=== PATIENT | female | born 1985 | race Caucasian/White ===

== ENCOUNTER 2017-01-13 23:59 | Emergency (ER) | payer BC ==
[2017-01-13 22:48] LABS: BASOPHIL# 0.1 X10e3 (0-0.3); BASOPHIL% 0.5 % (0-2.5); EOSINOPHIL# 0.1 X10e3 (0-0.7); EOSINOPHIL% 0.7 % (0.0-7.0); HEMATOCRIT 49.1 % (35.0-45.0); HEMOGLOBIN 15.9 gm/dL (12.0-16.0); LYMPHOCYTE# 2.2 X10e3 (1.0-3.5); LYMPHOCYTE% 15.3 % (17.0-45.0); MEAN CELL VOLUME 91.7 FL (83-96); MEAN CORPUSCULAR HEMOGLOBIN 29.7 PG (28-34); MEAN CORPUSCULAR HGB CONC 32.4 g/dL (30-36); MEAN PLATELET VOLUME 8.5 FL (6.5-11.5); MONOCYTE# 0.8 X10e3 (0-1.0); MONOCYTE% 5.7 % (3.0-12.0); NEUTROPHIL# 11.2 X10e3 (1.5-7.1); NEUTROPHIL% 77.8 % (40-75); PLATELET COUNT 285 X10e3 (140-420); RED BLOOD COUNT 5.35 X10e (3.90-5.30); RED CELL DISTRIBUTION WIDTH 14.1 % (11.0-15.5); WHITE BLOOD COUNT 14.3 X10e3 (4.0-10.5)
[2017-01-13 22:49] LABS: DIFF IND NO
[2017-01-13 23:25] LABS: ALBUMIN SERUM 5.1 g/dL (3.5-5.0); ALKALINE PHOSPHATASE 88 U/L (32-92); ALT (SGPT) 71 U/L (10-40); AMYLASE 46 U/L (0-46); AST (SGOT) 85 U/L (10-42); BILIRUBIN, DIRECT 0.2 mg/dL (0.0-0.2); BILIRUBIN,INDIRECT 1.1 mg/dL (0.0-0.9); BILIRUBIN,TOTAL 1.3 mg/dL (0.2-2.0); BLOOD UREA NITROGEN 17 mg/dL (9-23); CALCIUM SERUM 8.8 mg/dL (8.4-10.2); CARBON DIOXIDE 22 mmol/L (22-31); CHLORIDE 103 mmol/L (100-111); GLOM FILT RATE Estimated ABOVE60 mL/min (>60); GLUCOSE FASTING 89 mg/dL (70-110); LIPASE 39 U/L (22-51); POTASSIUM 3.7 mmol/L (3.5-5.1); PROTEIN TOTAL SERUM 8.1 g/dL (6.0-8.3); SODIUM 132 mmol/L (135-145)
== END 2017-01-14 00:04 | disposition home or self-care (01) ==
LOC: CED 23:59
PROVIDERS: Emergency Medicine
DX: K80.50 Calculus of bile duct without cholangitis or cholecystitis without obstruction (principal); F41.9 Anxiety disorder, unspecified; F32.9 Major depressive disorder, single episode, unspecified; F17.210 Nicotine dependence, cigarettes, uncomplicated
CPT/HCPCS: 36415; 80048; 80076; 82150; 83690; 84703; 85025; 99284

== ENCOUNTER → 2017-02-03 | Outpatient (CLI) | payer BC ==
--- NOTE | ~2017-02-03 | US6 ---
[facility] A Service of [facility] & [facility] [place] RADIOLOGY TEXT RESULTS PATIENT: ALEXANDRIA SOLIS LOCATION: [facility] : [birth year] UNIT #: [id number] AGE: [address]: Elicia Pena MD SEX: F ORDER DR: [id number] [facility] [address] [place], [place] [address] [id number] O MR#: [id number] Acc #: [id number] NAME: ALEXANDRIA SOLIS : 1985 SEX: F STUDY DATE/TIME: 02/03/2017 11:53 UNIT: [facility] ROOM: STUDY DESCRIPTION: US Abdominal Limited Attending Physician: Elicia Pena M.D. Referring Physician: Elicia Pena M.D. Ordering Physician: Elicia Pena M.D. Primary Care Physician: Elicia Pena M.D. MEDICAL IMAGING REPORT This report is preliminary unless electronic signature is present EXAM Right upper quadrant ultrasound, 02/03/2017. HISTORY Right upper quadrant abdominal pain and epigastric pain with nausea for 5 years. FINDINGS The liver is homogeneous in echotexture and demonstrates no cystic or solid mass lesions. The intra and extrahepatic bile ducts are not dilated. The gallbladder contains multiple shadowing gallstones but there is no evidence of gallbladder wall thickening or pericholecystic fluid. The common duct measures 2 mm. The pancreas and right kidney are normal. IMPRESSION Cholelithiasis. Dictated by... Francisco Seals M.D. THIS IS AN ELECTRONICALLY VERIFIED REPORT Francisco Seals M.D. at 02/04/2017 7:46 AM VESTA/fide TD: 02/03/2017 12:19 JOB #: [id number] MEDICAL IMAGING REPORT Page 1 of 1 COPY
== END | disposition home or self-care (01) ==
LOC: CGUS 10:29
DX: R10.13 Epigastric pain (principal); R10.11 Right upper quadrant pain; K80.20 Calculus of gallbladder without cholecystitis without obstruction
CPT/HCPCS: 76705

== ENCOUNTER → 2017-03-21 | Day surgery (SDC) | payer BC ==
--- NOTE | ~2017-03-21 | OR ---
Unit #: [id number] #: [id number] Patient: ALEXANDRIA SOLIS [id number] [address] [place], [place] [address] [id number] O MR#: [id number] NAME: ALEXANDRIA SOLIS ROOM: Date of Procedure: 03/21/2017 Admission Date: 03/21/2017 Surgeon: Tor Dasilva Jr., M.D. : 1985 Attending Physician: Tor Dasilva Jr., M.D. Primary Care Physician: Elicia Pena M.D. OPERATIVE REPORT INDICATIONS FOR PROCEDURE The patient is a 31-year-old white female, recently presented to the office complaining of biliary colic like symptoms with documented gallstones. It was felt she is having intermittent biliary colic with recurrent pain. Preoperative liver function tests are normal. She is brought in this time at her request for laparoscopic cholecystectomy. She understands the procedure including the risks, including that of common duct injury, biliary leak, and bleeding, and intra-abdominal organ injury, and consents. PREOPERATIVE DIAGNOSES Chronic cholecystitis with cholelithiasis. POSTOPERATIVE DIAGNOSES Chronic cholecystitis with cholelithiasis. ANESTHESIA General with endotracheal intubation and 0.5% Marcaine with epinephrine locally. PROCEDURE PERFORMED Laparoscopic cholecystectomy. DESCRIPTION OF PROCEDURE The patient was positioned in supine position. After being anesthetized and intubated, was prepped and draped in routine fashion for laparoscopic cholecystectomy. An infraumbilical incision was made and this was carried down through subcutaneous tissue down to the fascia. The fascia along with the umbilicus was lifted. A Veress needle was introduced into the abdomen. The abdomen was then inflated with CO2 gas. A 5-mm port was introduced in the abdomen followed by the camera. There was no evidence of any injury related to introduction of the Veress needle or the port. Brief intra-abdominal exploration was carried out, which was not remarkable except for noting what appeared to be a chronically inflamed gallbladder. Two 5-mm ports were placed laterally and an 11-mm port just to the right of the upper midline. The gallbladder was lifted. Multiple adhesions were dissected free of the gallbladder by both blunt and sharp dissection. After this was complete, dissection was carried out in the triangle of Calot, cystic duct was isolated, only 1 to 2 mm in diameter, was hemoclipped x4 and divided approximately 1 cm from its junction with the common duct. Cystic artery was identified, hemoclipped x3, and divided. An additional branch of the cystic artery more posterior was Unit #: [id number] #: [id number] Patient: ALEXANDRIA SOLIS isolated, hemoclipped and divided. The gallbladder was then removed from its bed with the hook cautery using a current of 20 and after it was released, it was removed through the upper midline incision along with the grasping clamp on the port. The port was replaced. Subhepatic space was irrigated. There was no evidence of any bleeding from the gallbladder bed. The clips on the cystic duct and cystic artery were both intact with no evidence of any leak or bleeding. A small amount of fluid was removed with several 4x4 sponges packed intraabdominal and brought out directly. After sponge count was correct x3, the ports were removed. There was no evidence of any bleeding from the port sites. The CO2 was expressed from the abdomen and as routine. The fascia in the larger port site was approximated using the neoClose technique and after this was complete, the port sites were injected with 0.5% Marcaine with epinephrine. The wounds were again irrigated and the fascia in the larger port site approximated with a [id number] 0 Vicryl suture. After total hemostasis was noted, the skin edges were approximated with stainless-steel skin clips and skin stapling device. Sterile dressings were applied externally. Estimated blood loss less than 50 mL. The patient received less than 1000 mL crystalloid solution during the procedure. Sponges and instruments counts were correct x3. No drains were used. No complications. The patient was taken to the recovery room with stable vital signs in satisfactory condition. Dictated by... Tor Dasilva Jr., M.D. JMB/mona TD: 03/21/2017 14:24 JOB #: [id number] OPERATIVE REPORT Page 1 of 1 X Tor Dasilva MD X PROCEDURE OPERATIVE NOTE
[2017-03-21 09:38] LABS: ALBUMIN SERUM 4.3 g/dL (3.5-5.0); BILIRUBIN,TOTAL 0.9 mg/dL (0.2-2.0); BUN/CREATININE RATIO 21.25; CALCIUM SERUM 8.8 mg/dL (8.4-10.2); CREATININE SERUM 0.8 mg/dL (0.6-1.4); GLOM FILT RATE Estimated 99.7 mL/min (>60); POTASSIUM 4.1 mmol/L (3.5-5.1)
== END | disposition home or self-care (01) ==
LOC: CSUR 07:39
PROVIDERS: Surgery
DX: K81.1 Chronic cholecystitis (principal); F17.210 Nicotine dependence, cigarettes, uncomplicated
CPT/HCPCS: 80053; 84703; 88304; C1713; J0330; J0690; J1650; J2250; J2405; J2710; J3010

== ENCOUNTER 2017-03-22 00:13 | Emergency (ER) | payer BC | END 2017-03-22 00:20 | disposition left against medical advice (07) | LOC: CED 00:13 | DX: Z53.21 Procedure and treatment not carried out due to patient leaving prior to being seen by health care provider (principal) ==